=== PATIENT | male | born 1955 | race Caucasian/White ===

== ENCOUNTER → 2020-04-28 07:01 | Outpatient (CLI) | payer OTHER, SELFPAY ==
--- NOTE | ~2020-04-28 | MR_ITS ---
EXAMINATION: MR shoulder LT wo con DATE: 04/28/2020 07:49 INDICATION: Left shoulder pain TECHNIQUE: Magnetic resonance imaging (MRI) of the left shoulder was performed without intravenous co ntrast. Sequences included axial PD-weighted FS FSE, coronal oblique PD-weighted FS FSE, coronal obli que T2-weighted FS FSE, sagittal PD-weighted FS FSE, and sagittal T1-weighted SE. COMPARISON: None. FINDINGS: Coracoacromial arch: The acromion undersurface is curved in morphology (type II). Prominent anterior acromial spur at the acromial insertion of the otherwise normal coracoacromial ligament. Moderate acromioclavicular arthro sis with subarticular cystic change versus erosion at the lateral head of the clavicle. Heart size or chronic clavicular joint effusion. There is marrow edema at both sides of the acromioclavicular join t. Rotator cuff: Mild to moderate tendinopathy of the subscapularis, supraspinatus and infraspinatus tendons with sutu re anchors along the greater tuberosity and focus of susceptibility artifact along the subscapularis tendon consistent with prior rotator cuff repair. No evident recurrent rotator cuff tear. The teres m inor tendon is normal. Normal rotator cuff muscle bulk and signal. Biceps tendon, glenoid labrum and glenohumeral cartilage: Long head biceps tendon appears to terminate at the cephalad aspect of the intertubercular groove whe re there are additional postoperative change in a suture anchor consistent with a bicipital tenodesis . The posterosuperior glenoid labrum appears small with a tiny focus of susceptibility artifact sugge sting prior labral debridement versus alternatively degeneration. No discrete labral tear. Mild gleno humeral osteoarthritis with mild nonuniform joint space narrowing but with relatively smooth surface most prominent along the inferomedial aspect of the humeral head. Also small marginal osteophytes norman ng the superior and posterior superior rim of the glenoid. Fluid: Physiologic amount of fluid in the glenohumeral joint and biceps tendon sheath. No loose osteochondra l bodies. Acromioclavicular joint effusion. No abnormally increased fluid signal at the subacromial/s ubdeltoid bursa to suggest bursitis. Bones: Joint centered marrow edema at the acromioclavicular joint without a discrete fracture line. No patho logic marrow replacing process. IMPRESSION: 1. Moderate acromioclavicular joint effusion with joint centered marrow edema at the acromion and mor e prominently at the lateral head of the clavicle. This could be related to osteoarthritis, other inf lammatory arthritis or potentially posttraumatic bone contusion or distal clavicular osteolysis. 2. Postoperative change of prior rotator cuff repair and bicipital tenodesis both of which appear to remain intact. 3. Mild glenohumeral osteoarthritis with changes of likely labral debridement versus degeneration at the posterior superior glenoid labrum. Reviewed, dictated and finalized at location A. CAL THERAPIST IMPRESSION: 1. Moderate acromioclavicular joint effusion with joint centered marrow edema a t the acromion and more prominently at the lateral head of the clavicle. This c ould be related to osteoarthritis, other inflammatory arthritis or potentially posttraumatic bone contusion or distal clavicular osteolysis. 2. Postoperative change of prior rotator cuff repair and bicipital tenodesis bryce th of which appear to remain intact. 3. Mild glenohumeral osteoarthritis with changes of likely labral debridement v ersus degeneration at the posterior superior glenoid labrum.
== END ==
PROVIDERS: PCP Family Medicine; Visit Provider Nurse Practitioner Psychiatric/Mental Health
DX: M25.512 Pain in left shoulder (principal); M19.012 Primary osteoarthritis, left shoulder
CPT/HCPCS: 73221